=== PATIENT | male | born 1940 | race Caucasian/White ===

== ENCOUNTER 2025-04-17 08:45 | Inpatient (IN) ==
--- NOTE | 2025-04-17 09:04 | Emergency Department Note ---
Impression & Plan CHI (closed head injury), Abrasion of scalp, Accidental fall from wheelchair, Dementia, Mass of right lung, Infrarenal abdominal aortic aneurysm (AAA) without rupture, Pleural effusion ED Provider Note ED Provider Note NAME: KAREL BREWSTER AGE:84 SEX: Male : 1940 ARRIVES VIA: EMS INFORMANT: Patient, EMS ED PROVIDER(s): Jenny Marcos DO CHIEF COMPLAINT: Fall out of wheelchair, head injury HPI: This is an 84-year-old male presents to the emergency department via EMS after a fall out of a wheelchair at the facility where he resides. Patient does have a history of dementia and has difficult time providing any additional history. Staff there noted he was bleeding from a spot on his head quite briskly however EMS reports bleeding was controlled by the time of arrival. Patient does use Eliquis. Patient admits to pain in his head, denies chest pain, abdominal pain, or difficulty breathing. Staff reported to EMS the patient had poor sleep last night which is unusual for him and fell asleep while seated in his wheelchair this morning. They heard a thud and turned around and realized he had fell out of his wheelchair. PAST MEDICAL HISTORY:See Below PAST SURGICAL HISTORY:See Below FAMILY HISTORY:See Below SOCIAL HISTORY:See Below HOME MEDICATIONS:See Below ALLERGIES:See Below VITALS:See Below PHYSICAL EXAMINATION: Primary Survey Airway: Intact Breathing: Normal, breath sounds equal bilaterally Circulation: Skin warm, distal pulses 2+, capillary refill less than 2 seconds Disability Pupils: Equal and reactive to light, 2 mm, brisk GCS: 15, Motor Function: Moves all extremities. Sensory: No deficits Secondary Survey GENERAL: alert, well appearing, well nourished, no distress, non-toxic HEAD: normal cephalic, abrasion noted to the superior forehead/frontal scalp, no active bleeding, no facial bone tenderness, no midface instability, no thomas signs, no raccoon eyes EYE EXAM: normal conjunctiva, PERRL and EOM's grossly intact OROPHARYNX: no exudate, no erythema, lips, buccal mucosa, and tongue normal and mucous membranes are moist NECK: supple, no nuchal rigidity, no adenopathy, non-tender, c-collar present CHEST: stable to compression anteriorly and posteriorly, no crepitus LUNGS: clear to auscultation. Normal chest wall mechanics, no w/r/r HEART: no murmurs, S1 normal and S2 normal ABDOMEN: abdomen soft, non-tender, normo-active bowel sounds, no masses, no rebound or guarding. PELVIS: stable to compression BACK: Back is symmetrical on inspection and there is no deformity, pain with palpation of the lumbar spine, no CVA tenderness. UPPER EXTREMITIES: full active and passive range of motion of all joints without tenderness to palpation, no obvious deformities, sensation intact bilaterally, normal pulses bilaterally; evidence of resolving ecchymosis noted to bilateral dorsal forearms. LOWER EXTREMITIES: full active and passive range of motion of all joints without tenderness to palpation, no obvious deformities, sensation intact bilaterally, normal pulses bilaterally; no brace noted in the distal right lower extremity, decreased range of motion secondary to this. NEURO EXAM: Confused, cranial nerves II-XII grossly intact, no dysarthria, no gross weakness of arms, no gross weakness of legs. GCS: 15. Vital Signs: reviewed and remarkable Differential Diagnosis: ICH, CHI, fracture, contusion, sprain, strain, laceration, abrasions, hemoperitoneum, occult spine injury, acute ligamentous injury, retroperitoneal bleeding, as well as others were considered MEDICAL DECISION MAKING: This is an 84-year-old presents from a facility after he excellently fell out of his wheelchair when he fell asleep. Patient afebrile hemodynamically stable on arrival. Staff concern as patient does use Eliquis. Labs drawn and sent, IV established, EKG and xrays performed and interpreted at bedside, and patient placed on telemetry. Patient sent for additional CT imaging. Initially CT of the head, C-spine, lumbar spine were ordered, however upon noting atypical findings on x-ray of the chest and consideration for his accompanying use of anticoagulation, additional CT imaging was added. Patient noted to have appearance of malignancy in the right lung, a AAA, however no evidence of acute traumatic injury. Patient remained hemodynamically stable throughout. Patient's son presented to bedside as well and I had several conversations with him regarding the results and findings as well as options for treatment. Per his request I did contact on-call pulmonology who also came and discussed the patient's condition with the son at bedside. We then discussed a palliative approach to his care moving forward. The son feels given the current [facility] he is and he would need to be upgraded to a nursing home facility. We discussed additional inpatient treatment until this could be arranged which would also allow for a palliative care consult. Case discussed with the hospitalist team for additional evaluation and management. Consultation(s): 1302: Discussed with Dr. Lora who came and evaluated the patient and spoke with son at bedside. 1323: Discussed with Veronica, admitting hospitalist team, for additional evaluation and management. ER Treatment Provided: See below 1145: Discussed all results with son at bedside. He was aware of the malignancy and stated they had a consultation with a doctor in [place] before he moved the patient here regarding some of the right lung. He states the abdominal aortic aneurysm was also previously known. He was able to pull up a prior CT from earlier this summer for comparison. Diagnostics Interpreted By Me: -ECG: Sinus bradycardia 58, normal axis, normal intervals, nonspecific ST/T wave changes, baseline artifact noted -Cardiac Monitoring: An order was placed for continuous cardiac monitoring. The monitor shows a rate of 60 with normal sinus rhythm. -Laboratory studies: As stated above and show below. -Imaging studies: X-ray Chest: A single view study of the chest was reviewed and was negative for cardiomegaly, focal infiltrate, effusion, pulmonary edema, or wide mediastinum. Questionable mass in the right lung. Triage Nursing Note Reviewed Prior/Outside Records Reviewed Past Med/Surg History Problem List (Updated 04/17/25 @ 15:55 by Jenny Marcos DO) Pleural effusion (Acute) Infrarenal abdominal aortic aneurysm (AAA) without rupture (Acute) Mass of right lung (Acute) Dementia (Acute) Accidental fall from wheelchair (Acute) Abrasion of scalp (Acute) CHI (closed head injury) (Acute) CAD (coronary artery disease) Urinary retention Enlarged prostate with lower urinary tract symptoms (LUTS) Medical History (Updated 04/17/25 @ 15:55 by Jenny Marcos DO) CVA (cerebral vascular accident) Social History Smoking Status: Unknown if ever smoked Feels Safe at Home: Yes Allergies Allergies Allergy/AdvReac Type Severity Reaction Status Date / Time codeine Allergy Verified 01/25/25 14:14 Home Meds Home Medications Medication Instructions Recorded Confirmed apixaban 5 mg tablet 5 mg PO BID 01/25/25 04/17/25 atorvastatin 10 mg tablet 10 mg PO HS 01/25/25 04/17/25 bisacodyl 10 mg rectal suppository 10 mg WA DAILY PRN Constipation 01/25/25 04/17/25 carvedilol 6.25 mg tablet 6.25 mg PO BID 01/25/25 04/17/25 dapagliflozin propanediol 10 mg 10 mg PO DAILY 01/25/25 04/17/25 tablet docusate sodium 100 mg capsule 100 mg PO BID 01/25/25 04/17/25 (Colace) famotidine 20 mg tablet (Pepcid) 20 mg PO BID 01/25/25 04/17/25 mirabegron 50 mg tablet,extended 50 mg PO DAILY 01/25/25 04/17/25 release 24 hr polyethylene glycol 3350 17 17 g PO DAILY 01/25/25 04/17/25 gram/dose oral powder (Miralax) cetirizine 10 mg tablet 10 mg PO DAILY 04/17/25 04/17/25 diclofenac sodium 1 % topical gel 4 g topical QID 04/17/25 04/17/25 hydrocortisone acetate 25 mg 25 mg WA BID PRN hemmoroids 04/17/25 04/17/25 rectal suppository ipratropium 0.5 mg-albuterol 3 mg 3 ml inhalation BID 04/17/25 04/17/25 (2.5 mg base)/3 mL nebulization soln lactulose 10 gram/15 mL oral 30 ml PO AMHS PRN Constipation 04/17/25 04/17/25 solution lorazepam 0.5 mg tablet 0.5 mg PO Q6H PRN Anxiety 04/17/25 04/17/25 melatonin 3 mg tablet 6 mg PO HS PRN Sleep 04/17/25 04/17/25 naproxen sodium 220 mg tablet 220 mg PO BID PRN Pain 04/17/25 04/17/25 pantoprazole 40 mg tablet,delayed 40 mg PO DAILY 04/17/25 04/17/25 release polymyxin B sulfate 10,000 1 drp ophthalmic (eye) QID 04/17/25 04/17/25 unit-trimethoprim 1 mg/mL eye drops tizanidine 4 mg tablet 4 mg PO Q8H PRN Muscle Spasm 04/17/25 04/17/25 Previous Rx's Medication Instructions Recorded tamsulosin 0.4 mg capsule (Flomax) 0.4 mg PO .every 12 hours #30 caps 01/28/25 Results & Data (ED) Vital Signs Vital Signs - 24 hr 04/17/25 08:45 04/17/25 09:30 04/17/25 09:33 Temperature 36.5 C Temperature Source Oral Pulse Rate 60 57 L 57 L Pulse Rate [Apical] Pulse Rate from SpO2 Sensor 57 L 57 L Respiratory Rate 19 19 19 Respiratory Effort / Characteristics Non-Labored Spontaneous Respiratory Depth Normal Respiratory Pattern Regular Blood Pressure 128/55 L 114/55 L 113/53 L Blood Pressure [Right Arm] Blood Pressure Mean 79 74 73 Blood Pressure Mean [Right Arm] Pulse Oximetry 99 94 94 Oxygen Delivery Method Room Air Sepsis Recent Fever Within 48 Hours No Sepsis New/Unexplained Change in Mental Status No Sepsis Action Taken by Nursing No Action Required 04/17/25 10:00 04/17/25 10:00 04/17/25 10:30 Temperature Temperature Source Pulse Rate 57 L 57 L Pulse Rate [Apical] 57 L Pulse Rate from SpO2 Sensor 57 L 58 L Respiratory Rate 18 18 19 Respiratory Effort / Characteristics Non-Labored Respiratory Depth Normal Respiratory Pattern Regular Blood Pressure 117/52 L 109/50 L Blood Pressure [Right Arm] 117/52 L Blood Pressure Mean 73 69 Blood Pressure Mean [Right Arm] 73 Pulse Oximetry 96 96 98 Oxygen Delivery Method Room Air Sepsis Recent Fever Within 48 Hours Sepsis New/Unexplained Change in Mental Status Sepsis Action Taken by Nursing 04/17/25 11:00 04/17/25 11:00 04/17/25 11:30 Temperature Temperature Source Pulse Rate 74 76 Pulse Rate [Apical] 76 Pulse Rate from SpO2 Sensor 74 76 Respiratory Rate 18 25 H 18 Respiratory Effort / Characteristics Non-Labored Respiratory Depth Normal Respiratory Pattern Regular Blood Pressure 93/52 L 104/49 L Blood Pressure [Right Arm] 93/52 L Blood Pressure Mean 65 67 Blood Pressure Mean [Right Arm] 65 Pulse Oximetry 97 96 91 Oxygen Delivery Method Room Air Sepsis Recent Fever Within 48 Hours Sepsis New/Unexplained Change in Mental Status Sepsis Action Taken by Nursing 04/17/25 12:00 04/17/25 12:00 04/17/25 12:50 Temperature Temperature Source Pulse Rate 77 77 Pulse Rate [Apical] 83 Pulse Rate from SpO2 Sensor 77 Respiratory Rate 18 20 Respiratory Effort / Characteristics Non-Labored Respiratory Depth Normal Respiratory Pattern Regular Blood Pressure 111/48 L Blood Pressure [Right Arm] 111/48 L Blood Pressure Mean 69 Blood Pressure Mean [Right Arm] 69 Pulse Oximetry 95 93 Oxygen Delivery Method Room Air Sepsis Recent Fever Within 48 Hours Sepsis New/Unexplained Change in Mental Status Sepsis Action Taken by Nursing 04/17/25 13:35 04/17/25 14:00 04/17/25 15:04 Temperature Temperature Source Pulse Rate Pulse Rate [Apical] 85 81 81 Pulse Rate from SpO2 Sensor Respiratory Rate 25 H 21 23 Respiratory Effort / Characteristics Non-Labored Spontaneous Non-Labored Spontaneous Non-Labored Spontaneous Respiratory Depth Normal Normal Normal Respiratory Pattern Regular Blood Pressure Blood Pressure [Right Arm] 131/57 L 122/67 123/65 Blood Pressure Mean Blood Pressure Mean [Right Arm] 81 85 84 Pulse Oximetry 96 99 96 Oxygen Delivery Method Room Air Room Air Room Air Sepsis Recent Fever Within 48 Hours Sepsis New/Unexplained Change in Mental Status Sepsis Action Taken by Nursing Laboratory Data 04/17/25 09:00 04/17/25 09:00 Lab Results 04/17/25 04/17/25 04/17/25 Range/Units 09:00 14:57 Unknown WBC 9.15 (4.8-10.8) K/ul RBC 3.70 L (4.70-6.10) M/uL Hgb 10.0 L (14.0-18.0) g/dL Hct 31.5 L (42.0-52.0) % MCV 85.1 (80.0-100.0) fL MCH 27.0 (25.0-34.0) pg MCHC 31.7 L (32.0-36.0) g/dL RDW Std Deviation 46.4 H (36.4-46.3) fL RDW Coeff of Joellen 15.0 H (11.5-14.5) % Plt Count 299 (130-400) K/uL MPV 10.0 (9.4-12.4) fL Immature Gran % (Auto) 0.1 % Neut % (Auto) 72.3 % Lymph % (Auto) 8.1 % Crane % (Auto) 14.8 % Eos % (Auto) 4.4 % Baso % (Auto) 0.3 % Neut # (Auto) 6.62 H (1.40-6.50) K/uL Lymph # (Auto) 0.74 L (1.20-3.40) K/uL Crane # (Auto) 1.35 H (0.11-0.59) K/uL Eos # (Auto) 0.40 (0.00-0.50) K/uL Baso # (Auto) 0.03 (0.00-0.20) K/uL Immature Gran # (Auto) 0.01 (0.01-0.20) K/uL ESR > 130 H (0-20) mm/hr Sodium 138 (136-145) mmol/L Potassium 4.1 (3.5-5.1) mmol/L Chloride 104 (98-107) mmol/L Carbon Dioxide 27 (21-32) mmol/L Anion Gap 7 (3-11) BUN 28 H (6-23) mg/dl Creatinine 1.15 (0.6-1.4) mg/dl Est Cr Clr Drug Dosing 35.9 ml/min eGFR 61.98 BUN/Creatinine Ratio 24.3 H (10-20) Glucose 121 H (70-99(Fasting)) mg/dl Calcium 9.6 (8.6-10.3) mg/dl Magnesium 2.3 (1.7-2.4) mg/dl Total Bilirubin 0.4 (0.2-1.0) mg/dl AST 22 (13-39) U/L ALT 11 (7-52) U/L Alkaline Phosphatase 77 (34-104) U/L Troponin I High Sens 10.4 (0-20) pg/ml C-Reactive Protein 10.84 H (0-0.5) mg/dl Total Protein 9.1 H (6.0-8.3) gm/dl Albumin 3.1 L (3.4-5.0) gm/dl Globulin 6.0 H (2.5-4.0) gm/dl Albumin/Globulin Ratio 0.5 L (0.9-2) Procalcitonin 0.08 (0-0.5) ng/ml TSH 1.763 (0.300-4.500) uIu/ml Adenovirus (PCR) Not Detected (NotDetected) B. pertussis DNA (PCR) Not Detected (NotDetected) B.parapertussis DNA PCR Not Detected (NotDetected) C. pneumoniae DNA (PCR) Not Detected (NotDetected) Coronavirus OC43 (PCR) Not Detected (NotDetected) Coronavirus HKU1 (PCR) Not Detected (NotDetected) Coronavirus 229E (PCR) Not Detected (NotDetected) SARS-CoV-2 (PCR) Not Detected (NotDetected) Coronavirus NL63 (PCR) Not Detected (NotDetected) Human Metapneumovir PCR Not Detected (NotDetected) Influenza Type A (PCR) Not Detected (NotDetected) Influenza Type B (PCR) Not Detected (NotDetected) M. pneumoniae (PCR) Not Detected (NotDetected) Parainfluenza 1 (PCR) Not Detected (NotDetected) Parainfluenza 2 (PCR) Not Detected (NotDetected) Parainfluenza 3 (PCR) Not Detected (NotDetected) Parainfluenza 4 (PCR) Not Detected (NotDetected) RSV (PCR) Not Detected (NotDetected) Entero/Rhino (PCR) Not Detected (NotDetected) Administered Medications Discontinued Medications Sodium Chloride (Nss) 500 mls @ 125 mls/hr IV .Q4H JOHN Stop: 04/17/25 12:59 Last Infusion: 04/17/25 12:36 Dose: Infused Documented By: Admin: 04/17/25 09:35 Dose: 125 mls/hr Documented By: JAYNE Ioversol (Optiray 320 100ml) 94 ml IV ONCE ONE Stop: 04/17/25 10:39 Last Admin: 04/17/25 10:38 Dose: 94 ml Documented By: CARLOTTA Imaging Data Radiologist's Impression: Cervical Spine CT 04/17/25 08:53 CT cervical spine wo con CT DOSE: 1769.98 mGy.cm CLINICAL HISTORY: 84 years-old Male with trauma. Acute head and neck injury status post fall COMPARISON: Head CT of same day TECHNIQUE: Multiple axial CT images of the cervical spine were obtained without contrast. A dose lowering technique was utilized adhering to the principles of ALARA. FINDINGS: Mild multilevel intervertebral disc space narrowing. Moderate to severe degeneration at C1-C2. Moderate multilevel facet arthrosis. Nuchal ligament calcifications. Sclerotic focus at C7, likely a small bone island. The cervical soft tissues appear unremarkable. Emphysema with pulmonary fibrotic changes. Partially imaged right upper lobe consolidation. Chest CT dictated separately. Unremarkable soft tissues. IMPRESSION: 1. No acute cervical spine fracture or subluxation identified. 2. Emphysema with fibrosis and partially imaged right upper lobe consolidation. Please refer to the same day chest CT for additional findings. ACT 112: Negative or not required by law. The above report was generated using voice recognition software. It may contain grammatical, syntax or spelling errors. Electronically signed by: Shawn Torres M.D. 04/17/2025 11:29 AM Chest X-Ray 04/17/25 08:53 XR chest 1V portable CLINICAL HISTORY: Trauma. COMPARISON STUDY: No previous studies for comparison. FINDINGS: No pneumothorax or pleural effusion is identified. Mild asymmetric right lung volume loss is noted. There are asymmetric opacities and interstitial thickening within the right lung. Biapical densities are also greater on the right. There is no evidence for pulmonary edema. Cardiomediastinal silhouette is unremarkable. Electronic device projects of the left lower chest. No acute rib fractures are identified on portable AP chest radiograph. IMPRESSION: 1. No pneumothorax. 2. Asymmetric interstitial thickening, opacities and volume loss within the right lung. These findings are age-indeterminate and may be chronic however pneumonia cannot be excluded. Radiographic follow-up to ensure stability/resolution is recommended to exclude the possibility of an underlying pulmonary lesion. ACT 112: Negative or not required by law. Electronically signed by: Dave Gutierrez M.D. 04/17/2025 9:[address] 04/17/25 08:53 CT head/brain wo con CLINICAL HISTORY: 84 years-old Male with trauma. Acute head trauma, TECHNIQUE: Multiple axial CT images of the head were obtained without contrast. A dose lowering technique was utilized adhering to the principles of ALARA. COMPARISON: CT cervical spine same day FINDINGS: Motion degraded exam. Involutional changes with chronic microvascular ischemic disease. Areas of bilateral parieto-occipital encephalomalacia are noted. Cerebral vascular calcifications. Chronic lacunar infarcts of the cerebellum. No acute intracranial hemorrhage, midline shift, intracranial mass, hydrocephalus, territorial ischemia or abnormal extra-axial collection. The calvarium is intact. The paranasal sinuses, mastoid air cells, and middle ear cavities are clear. IMPRESSION: 1. Motion degraded exam without acute intracranial abnormality or calvarial fracture identified. 2. Involutional changes with chronic microvascular ischemic disease. 3. 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 ACT 112: Negative or not required by law. The above report was generated using voice recognition software. It may contain grammatical, syntax or spelling errors. Electronically signed by: Shawn Torres M.D. 04/17/2025 11:25 AM Pelvis X-Ray 04/17/25 08:53 XR pelvis 1-2V routine HISTORY: 84 years-old Male trauma acute pelvic trauma COMPARISON: CT abdomen and pelvis of same day TECHNIQUE: AP view of the pelvis FINDINGS: Mild osteoarthritis of the hips. There is cortical irregularity noted involving the mid right femoral neck. No acute displaced fracture or dislocation. Arterial calcifications are present. Surgical clips project over the midline pelvis. IMPRESSION: 1. No definite acute fracture or dislocation. 2. Cortical irregularity of the right femoral neck is likely projectional when comparing to the same day CT abdomen and pelvis. No definite acute fracture identified. ACT 112: Negative or not required by law. The above report was generated using voice recognition software. It may contain grammatical, syntax or spelling errors. Electronically signed by: Shawn Torres M.D. 04/17/2025 11:12 AM Abdomen/Pelvis CT 04/17/25 08:58 CT SCAN OF THE ABDOMEN AND PELVIS WITH IV CONTRAST CLINICAL HISTORY: Fall. COMPARISON STUDY: Pelvis radiograph performed earlier today. TECHNIQUE: Following the IV administration of 94 cc of Optiray 320, CT scan of the abdomen and pelvis is performed from the lung bases to the proximal femora. Images are reviewed in the axial, sagittal, and coronal planes. IV contrast was administered without complication. A dose lowering technique was utilized adhering to the principles of ALARA. FINDINGS: Please note that the chest CT will be reported separately. A small right basilar pneumothorax is better depicted on that exam. No hemoperitoneum or pneumoperitoneum is present. Note is made of a 6.6 x 5.4 cm infrarenal abdominal aortic aneurysm. There is no evidence for rupture. There is extensive aortoiliac atherosclerotic plaque. A 3 cm water attenuation right renal lesion represents a cyst. There is no evidence for traumatic injury to the liver, spleen, adrenal glands, kidneys or pancreas. There are calcified granulomas within the spleen. A moderate amount of stool within the colon and rectum is present. No bowel wall thickening is present. There is no evidence for a bowel obstruction. A moderate T12 compression fracture is likely chronic. 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 The possible right femoral neck fracture on radiograph was artifactual. There are no acute fractures within the lumbar spine, pelvis or hips. IMPRESSION: 1. No acute traumatic findings within the abdomen or pelvis. 2. No acute fractures within the lumbar spine, pelvis or hips. Old T12 compression fracture. 3. 6.6 x 5.4 cm infrarenal aortic aneurysm. No evidence for rupture. Nonemergent Vascular surgery consultation is recommended. ACT 112: Negative or not required by law. Electronically signed by: Dave Gutierrez M.D. 04/17/2025 11:[address] 04/17/25 08:[address] WITH CONTRAST CLINICAL HISTORY: trauma COMPARISON STUDY: No previous studies for comparison. TECHNIQUE: Axial images of the lumbar spine were obtained following intravenous injection of 94 cc of Optiray 320 IV. Sagittal and coronal reformats were viewed. A dose lowering technique was utilized adhering to the principles of ALARA. FINDINGS: For purposes of numbering on this exam, the L5-S1 disc space is assigned to axial image 358 of [id number]. There is moderate lumbar spine dextroscoliosis. Moderate loss of height of the superior endplate of T12 is likely chronic. There is also mild loss of height of the superior endplate of L1 which is also chronic. No acute lumbar spine fractures are present. There are no suspicious osseous lesions. There is severe multilevel facet arthrosis and moderate disc space narrowing and endplate osteophytosis within the lumbar spine. Evaluation of the central canal and neural foramen is suboptimal given CT technique. Please note that the abdomen and pelvis CT will be reported separately. A 6.6 cm infrarenal abdominal aortic aneurysm is better depicted on that exam. There is a right renal cyst. No acute paravertebral abnormality is identified. IMPRESSION: 1. No acute lumbar spine fracture or subluxation. 2. Old moderate T12 compression fracture, likely chronic. Mild loss of height of the superior endplate of L1 which is also chronic. 3. 6.6 cm infrarenal abdominal aortic aneurysm better depicted on the abdomen and pelvis CT. No evidence for rupture. 4. Moderate degenerative disc disease and severe facet arthrosis within the lumbar spine. Moderate dextroscoliosis. ACT 112: Negative or not required by law. Electronically signed by: Dave Gutierrez M.D. 04/17/2025 11:[address] 04/17/25 09:28 CT SCAN OF THE CHEST WITH IV CONTRAST CLINICAL HISTORY: Fall. COMPARISON STUDY: Chest radiograph performed earlier today. TECHNIQUE: Following the IV administration of 94 cc of Optiray 320, CT scan of the thorax was performed from the thoracic inlet to the upper abdomen. Images are reviewed in the axial, sagittal, and coronal planes. IV contrast was administered without complication. A dose lowering technique was utilized adhering to the principles of ALARA. CT DOSE: 1215.3 mGy.cm FINDINGS: There is no evidence for traumatic injury to the thoracic aorta. Extensive coronary artery calcification is present. The size of the heart is at the upper limits of normal. There are calcified subcarinal and hilar lymph nodes. No pathologically enlarged thoracic lymph nodes are present. There are several prominent subcarinal lymph nodes. Of note, there is a small right basilar pneumothorax. A small amount of associated pleural fluid is present. There is also trace pneumomediastinum. Of note, there are multiple irregular subpleural mass-like opacities within the right lung, the largest of which is within the superior segment of the right lower lobe on image 105. This measures 5.1 cm. There is an additional 4.3 cm subpleural opacity within the medial right lower lobe on image 119. An underlying bronchopleural fistula cannot be excluded. Additional smaller subpleural densities are present. There is a 1.6 cm right lower lobe nodular density. Of note, there is multifocal subpleural reticulation consistent with interstitial lung disease and suspected honeycombing. Right apical pleural thickening is present. There is underlying emphysema. A moderate T12 compression fracture is likely old. No acute rib or thoracic spine fractures identified. IMPRESSION: 1. Small right pneumothorax. No acute rib fractures identified. Trace pneumomediastinum. An underlying bronchopleural fistula as the etiology for the pneumothorax cannot be excluded. 2. Multiple subpleural mass-like opacities within the right lung which correspond to findings on chest radiograph. These are nonspecific and may represent necrotizing pneumonia. However, a neoplastic etiology is also within the differential. Pulmonary consultation is recommended. In addition, short-term follow-up chest CT in one month is suggested. 3. Evidence for interstitial lung disease and emphysema, as described above. 4. Scattered nodular opacities within the lungs, including a 1.6 and a right lower lobe opacity. These can be assessed on the follow-up chest CT. 5. Moderate T12 compression fracture, likely chronic. No acute fractures identified. ACT 112: Positive. There are findings on this exam that require communication between the performing entity and the patient following Patient Test Result Information Act ([place] Act 112) guidelines. Electronically signed by: Dave Gutierrez M.D. 04/17/2025 11:14 AM Discharge Plan Visit Data Chief Complaint: Fall Stated Complaint: fell out of wheelchair ED Provider: Jenny Marcos Discharge Problem: CHI (closed head injury), Abrasion of scalp, Accidental fall from wheelchair, Dementia, Mass of right lung, Infrarenal abdominal aortic aneurysm (AAA) without rupture, Pleural effusion Patient Disposition: Being Evaluated by Hospitalist Condition: Fair Forms Stand Alone Forms: My [facility] Prescriptions Prescriptions: No Action apixaban 5 mg tablet 5 mg PO BID atorvastatin 10 mg tablet 10 mg PO HS bisacodyl 10 mg suppository 10 mg WA DAILY PRN (Reason: Constipation) carvedilol 6.25 mg tablet 6.25 mg PO BID Rx Instructions: must administer with a meal/food dapagliflozin propanediol 10 mg tablet 10 mg PO DAILY docusate sodium [Colace] 100 mg capsule 100 mg PO BID famotidine [Pepcid] 20 mg tablet 20 mg PO BID mirabegron 50 mg tablet extended release 24 hr 50 mg PO DAILY polyethylene glycol 3350 [Miralax] 17 gram/dose powder 17 g PO DAILY tamsulosin [Flomax] 0.4 mg capsule 0.4 mg PO .every 12 hours Qty: 30 2RF ipratropium-albuterol [DuoNeb] 0.5 mg-3 mg(2.5 mg base)/3 mL Solution For Nebulization 3 ml INHALATION BID Rx Instructions: after meals cetirizine 10 mg Tablet 10 mg PO DAILY tizanidine 4 mg tablet 4 mg PO Q8H PRN (Reason: Muscle Spasm) melatonin 3 mg Tablet 6 mg PO HS PRN (Reason: Sleep) hydrocortisone acetate 25 mg Suppository 25 mg WA BID PRN (Reason: hemmoroids) lorazepam 0.5 mg tablet 0.5 mg PO Q6H PRN (Reason: Anxiety) pantoprazole 40 mg Tablet,Delayed Release (Dr/Ec) 40 mg PO DAILY naproxen sodium 220 mg Tablet 220 mg PO BID PRN (Reason: Pain) polymyxin B sulf-trimethoprim 10,000 unit- 1 mg/mL drops 1 drp ophthalmic (eye) QID Rx Instructions: into left eye at 0800, 1200, 1600, 2000 lactulose 10 gram/15 mL Solution 30 ml PO AMHS PRN (Reason: Constipation) diclofenac sodium 1 % Gel 4 g TOPICAL QID Rx Instructions: apply to single knee, ankle, foot; for foot includes sole/toes/top of foot Referrals Referrals: Compa Ricketts MD [Primary Care Provider] -
[2025-04-17 09:15] LABS: Hematocrit (blood only) 31.5 % (42.0-52.0); Hemoglobin 10.0 g/dL (14.0-18.0); Immature Granulocytes # (auto) 0.01 K/uL (0.01-0.20); Immature Granulocytes % (auto) 0.1 %; Mean Corpuscular Hemoglobin 27.0 pg (25.0-34.0); Mean Corpuscular Volume 85.1 fL (80.0-100.0); Platelet Count 299 K/uL (130-400); RDW Standard Deviation 46.4 fL (36.4-46.3); Red Blood Count 3.70 M/uL (4.70-6.10); White Blood Count 9.15 K/ul (4.8-10.8)
--- NOTE | 2025-04-17 09:20 | XRay Report ---
XR chest 1V portable CLINICAL HISTORY: Trauma. COMPARISON STUDY: No previous studies for comparison. FINDINGS: No pneumothorax or pleural effusion is identified. Mild asymmetric right lung volume loss i s noted. There are asymmetric opacities and interstitial thickening within the right lung. Biapical d ensities are also greater on the right. There is no evidence for pulmonary edema. Cardiomediastinal s ilhouette is unremarkable. Electronic device projects of the left lower chest. No acute rib fractures are identified on portable AP chest radiograph. IMPRESSION: 1. No pneumothorax. 2. Asymmetric interstitial thickening, opacities and volume loss within the right lung. These finding s are age-indeterminate and may be chronic however pneumonia cannot be excluded. Radiographic follow- up to ensure stability/resolution is recommended to exclude the possibility of an underlying pulmonar y lesion. ACT 112: Negative or not required by law. Electronically signed by: Dave Gutierrez M.D. 04/17/2025 9:18 AM
[2025-04-17 09:32] LABS: Alanine Aminotransferase 11.0 U/L (7-52); Albumin Globulin Ratio 0.5 (0.9-2); Albumin Level 3.1 gm/dl (3.4-5.0); Alkaline Phosphatase 77.0 U/L (34-104); Anion Gap 7.0 (3-11); Bilirubin,Total 0.4 mg/dl (0.2-1.0); Blood Urea Nitrogen 28.0 mg/dl (6-23); Calcium 9.6 mg/dl (8.6-10.3); Carbon Dioxide 27.0 mmol/L (21-32); Chloride 104.0 mmol/L (98-107); Creatinine Clr Calc Pharmacy 35.9 ml/min; Globulin 6.0 gm/dl (2.5-4.0); Glucose 121.0 mg/dl (70-99(Fasting)); Magnesium 2.3 mg/dl (1.7-2.4); Potassium 4.1 mmol/L (3.5-5.1); Sodium 138.0 mmol/L (136-145); Total Protein 9.1 gm/dl (6.0-8.3)
[2025-04-17] MEDS: SODIUM CHLORIDE 0.9% 500 ML IV SCH (09:35)
[2025-04-17 09:47] LABS: Thyroid Stimulating Hormone 1.763 uIu/ml (0.300-4.500)
[2025-04-17] MEDS: OPTIRAY 320 100ml IV ONE (10:38)
--- NOTE | 2025-04-17 11:13 | XRay Report ---
XR pelvis 1-2V routine HISTORY: 84 years-old Male trauma acute pelvic trauma COMPARISON: CT abdomen and pelvis of same day TECHNIQUE: AP view of the pelvis FINDINGS: Mild osteoarthritis of the hips. There is cortical irregularity noted involving the mid right femoral neck. No acute displaced fracture or dislocation. Arterial calcifications are present. Surgical clip s project over the midline pelvis. IMPRESSION: 1. No definite acute fracture or dislocation. 2. Cortical irregularity of the right femoral neck is likely projectional when comparing to the same day CT abdomen and pelvis. No definite acute fracture identified. ACT 112: Negative or not required by law. The above report was generated using voice recognition software. It may contain grammatical, syntax o r spelling errors. Electronically signed by: Shawn Torres M.D. 04/17/2025 11:12 AM
--- NOTE | 2025-04-17 11:16 | CT Scan Report ---
CT SCAN OF THE CHEST WITH IV CONTRAST CLINICAL HISTORY: Fall. COMPARISON STUDY: Chest radiograph performed earlier today. TECHNIQUE: Following the IV administration of 94 cc of Optiray 320, CT scan of the thorax was perform ed from the thoracic inlet to the upper abdomen. Images are reviewed in the axial, sagittal, and mary nal planes. IV contrast was administered without complication. A dose lowering technique was utilize d adhering to the principles of ALARA. CT DOSE: 1215.3 mGy.cm FINDINGS: There is no evidence for traumatic injury to the thoracic aorta. Extensive coronary artery calcification is present. The size of the heart is at the upper limits of normal. There are calcified subcarinal and hilar lymph nodes. No pathologically enlarged thoracic lymph nodes are present. There are several prominent subcarinal lymph nodes. Of note, there is a small right basilar pneumothorax. A small amount of associated pleural fluid is present. There is also trace pneumomediastinum. Of note , there are multiple irregular subpleural mass-like opacities within the right lung, the largest of w hich is within the superior segment of the right lower lobe on image 105. This measures 5.1 cm. There is an additional 4.3 cm subpleural opacity within the medial right lower lobe on image 119. An under lying bronchopleural fistula cannot be excluded. Additional smaller subpleural densities are present. There is a 1.6 cm right lower lobe nodular density. Of note, there is multifocal subpleural reticula tion consistent with interstitial lung disease and suspected honeycombing. Right apical pleural thick ening is present. There is underlying emphysema. A moderate T12 compression fracture is likely old. N o acute rib or thoracic spine fractures identified. IMPRESSION: 1. Small right pneumothorax. No acute rib fractures identified. Trace pneumomediastinum. An underlyin g bronchopleural fistula as the etiology for the pneumothorax cannot be excluded. 2. Multiple subpleural mass-like opacities within the right lung which correspond to findings on ches t radiograph. These are nonspecific and may represent necrotizing pneumonia. However, a neoplastic et iology is also within the differential. Pulmonary consultation is recommended. In addition, short-ter m follow-up chest CT in one month is suggested. 3. Evidence for interstitial lung disease and emphysema, as described above. 4. Scattered nodular opacities within the lungs, including a 1.6 and a right lower lobe opacity. Thes e can be assessed on the follow-up chest CT. 5. Moderate T12 compression fracture, likely chronic. No acute fractures identified. ACT 112: Positive. There are findings on this exam that require communication between the performing entity and the patient following Patient Test Result Information Act ([place] Act 112) guidelines. Electronically signed by: Dave Gutierrez M.D. 04/17/2025 11:14 AM
--- NOTE | 2025-04-17 11:22 | CT Scan Report ---
CT SCAN OF THE ABDOMEN AND PELVIS WITH IV CONTRAST CLINICAL HISTORY: Fall. COMPARISON STUDY: Pelvis radiograph performed earlier today. TECHNIQUE: Following the IV administration of 94 cc of Optiray 320, CT scan of the abdomen and pelvi s is performed from the lung bases to the proximal femora. Images are reviewed in the axial, sagittal , and coronal planes. IV contrast was administered without complication. A dose lowering technique wa s utilized adhering to the principles of ALARA. FINDINGS: Please note that the chest CT will be reported separately. A small right basilar pneumothor ax is better depicted on that exam. No hemoperitoneum or pneumoperitoneum is present. Note is made of a 6.6 x 5.4 cm infrarenal abdominal aortic aneurysm. There is no evidence for rupture. There is exte nsive aortoiliac atherosclerotic plaque. A 3 cm water attenuation right renal lesion represents a cys t. There is no evidence for traumatic injury to the liver, spleen, adrenal glands, kidneys or pancrea s. There are calcified granulomas within the spleen. A moderate amount of stool within the colon and rectum is present. No bowel wall thickening is present. There is no evidence for a bowel obstruction. A moderate T12 compression fracture is likely chronic. 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 The possible right femoral neck fracture on radiograph was artifactual. There are no acute f ractures within the lumbar spine, pelvis or hips. IMPRESSION: 1. No acute traumatic findings within the abdomen or pelvis. 2. No acute fractures within the lumbar spine, pelvis or hips. Old T12 compression fracture. 3. 6.6 x 5.4 cm infrarenal aortic aneurysm. No evidence for rupture. Nonemergent Vascular surgery con sultation is recommended. ACT 112: Negative or not required by law. Electronically signed by: Dave Gutierrez M.D. 04/17/2025 11:21 AM
--- NOTE | 2025-04-17 11:26 | CT Scan Report ---
LUMBAR SPINE CT WITH CONTRAST CLINICAL HISTORY: trauma COMPARISON STUDY: No previous studies for comparison. TECHNIQUE: Axial images of the lumbar spine were obtained following intravenous injection of 94 cc of Optiray 320 IV. Sagittal and coronal reformats were viewed. A dose lowering technique was utilized a dhering to the principles of ALARA. FINDINGS: For purposes of numbering on this exam, the L5-S1 disc space is assigned to axial image 358 of 426. There is moderate lumbar spine dextroscoliosis. Moderate loss of height of the superior endp late of T12 is likely chronic. There is also mild loss of height of the superior endplate of L1 which is also chronic. No acute lumbar spine fractures are present. There are no suspicious osseous lesion s. There is severe multilevel facet arthrosis and moderate disc space narrowing and endplate osteophy tosis within the lumbar spine. Evaluation of the central canal and neural foramen is suboptimal given CT technique. Please note that the abdomen and pelvis CT will be reported separately. A 6.6 cm infra renal abdominal aortic aneurysm is better depicted on that exam. There is a right renal cyst. No acut e paravertebral abnormality is identified. IMPRESSION: 1. No acute lumbar spine fracture or subluxation. 2. Old moderate T12 compression fracture, likely chronic. Mild loss of height of the superior endplat e of L1 which is also chronic. 3. 6.6 cm infrarenal abdominal aortic aneurysm better depicted on the abdomen and pelvis CT. No evide nce for rupture. 4. Moderate degenerative disc disease and severe facet arthrosis within the lumbar spine. Moderate de xtroscoliosis. ACT 112: Negative or not required by law. Electronically signed by: aDve Gutierrez M.D. 04/17/2025 11:25 AM
--- NOTE | 2025-04-17 11:27 | CT Scan Report ---
CT head/brain wo con CLINICAL HISTORY: 84 years-old Male with trauma. Acute head trauma, TECHNIQUE: Multiple axial CT images of the head were obtained without contrast. A dose lowering tech nique was utilized adhering to the principles of ALARA. COMPARISON: CT cervical spine same day FINDINGS: Motion degraded exam. Involutional changes with chronic microvascular ischemic disease. Areas of bila teral parieto-occipital encephalomalacia are noted. Cerebral vascular calcifications. Chronic lacunar infarcts of the cerebellum. No acute intracranial hemorrhage, midline shift, intracranial mass, hydr ocephalus, territorial ischemia or abnormal extra-axial collection. The calvarium is intact. The paranasal sinuses, mastoid air cells, and middle ear cavities are clear . IMPRESSION: 1. Motion degraded exam without acute intracranial abnormality or calvarial fracture identified. 2. Involutional changes with chronic microvascular ischemic disease. 3. 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 ACT 112: Negative or not required by law. The above report was generated using voice recognition software. It may contain grammatical, syntax o r spelling errors. Electronically signed by: Shawn Torres M.D. 04/17/2025 11:25 AM
--- NOTE | 2025-04-17 11:30 | CT Scan Report ---
CT cervical spine wo con CT DOSE: 1769.98 mGy.cm CLINICAL HISTORY: 84 years-old Male with trauma. Acute head and neck injury status post fall COMPARISON: Head CT of same day TECHNIQUE: Multiple axial CT images of the cervical spine were obtained without contrast. A dose low ering technique was utilized adhering to the principles of ALARA. FINDINGS: Mild multilevel intervertebral disc space narrowing. Moderate to severe degeneration at C1- C2. Moderate multilevel facet arthrosis. Nuchal ligament calcifications. Sclerotic focus at C7, likel y a small bone island. The cervical soft tissues appear unremarkable. Emphysema with pulmonary fibrotic changes. Partially imaged right upper lobe consolidation. Chest CT dictated separately. Unremarkable soft tissues. IMPRESSION: 1. No acute cervical spine fracture or subluxation identified. 2. Emphysema with fibrosis and partially imaged right upper lobe consolidation. Please refer to the chest CT for additional findings. ACT 112: Negative or not required by law. The above report was generated using voice recognition software. It may contain grammatical, syntax o r spelling errors. Electronically signed by: Shawn Torres M.D. 04/17/2025 11:29 AM
--- NOTE | 2025-04-17 12:46 | Pulmonary Consultation ---
Date of Consultation April 17, 2025 Assessment & Plan (1) Mass of right lung: I had a long and detailed discussion with the patient's son regarding the patient's condition and prognosis. I explained to him the work-up and potential procedures and treatments, which include but not restricted to keeping the p atient NPO because of concern about aspiration, need for bronchoscopy, prolonged treatment with IV antibiotics, etc... The patient's son had chance to ask questions. He opted for palliative care. However, because the patient has been residing in a prison, palliative care may have to be started in the hospital. The same was discussed with Dr. Marcos. (2) Failure to thrive in adult: (3) Dementia: (4) Pneumothorax: History of Present Illness Reason for Consultation: Abnormal Chest CT Attending Physician: Dr. Marcos History of Present Illness The patient is an 84-year-old male who presented to the ED after an accidental fall from his wheelchair at his residential facility, during which he struck his head. The event occurred after a night of poor sleep, which was unusual for him, and he reportedly fell asleep in his wheelchair that morning before the fall. Staff at the facility noted brisk bleeding from a scalp wound, which had been controlled by the time EMS arrived. He has a history of dementia and was unable to provide further details; additional history was obtained from his son. Imaging workup included chest imaging which showed multiple subpleural mass- like opacities in the right lung, the largest measuring 5.1 cm, with associated right basilar pneumothorax, small pleural effusion, trace pneumomediastinum, and underlying emphysema and interstitial lung disease. No acute rib fractures. Past medical history included BPH, CAD, COPD, CHF, GERD, MAHSA, HLD, HTN, MS, dementia, CVA, right lung cancer, pleural effusion, infrarenal AAA, urinary retention, and a history of falls. Home medications included apixaban, atorvastatin, carvedilol, dapagliflozin, tamsulosin, mirabegron, famotidine, docusate, polyethylene glycol, bisacodyl, cetirizine, diclofenac gel, hydrocortisone suppository, ipratropium-albuterol, lactulose, lorazepam, melatonin, naproxen, pantoprazole, polymyxin B/trimethoprim eye drops, and tizanidine. I was asked by Dr. Marcos in the ED because the patient's son wanted an opinion regarding potential for benefit from treatment of the abnormalities on the chest CT versus resorting to palliative care. I reviewed the record and interviewed the patient's son, and tried as much as possible to talk to the patient, but I was only able to get few words from him. Initially he denied any pain, but after giving him more options, he admitted to some pain at the site where he hit his head. He denied problems with chest pain or dyspnea. He denied problems with cough. I had a long and detailed discussion with the patient's son regarding the patient's condition and prognosis. I explained to him the work-up and potential procedures and treatments, which include but not restricted to keeping the patient NPO because of concern about aspiration, need for bronchoscopy, prolo nged treatment with IV antibiotics, etc... The patient's son had chance to ask questions. He opted for palliative care. However, because the patient has been residing in a prison, palliative care may have to be started in the hospital. The same was discussed with Dr. Marcos. Allergies Allergy/AdvReac Type Severity Reaction Status Date / Time codeine Allergy Verified 01/25/25 14:14 Home Medications Medication Instructions Recorded Confirmed Type apixaban 5 mg tablet 5 mg PO BID 01/25/25 04/17/25 History atorvastatin 10 mg tablet 10 mg PO HS 01/25/25 04/17/25 History bisacodyl 10 mg rectal suppository 10 mg DC DAILY PRN Constipation 01/25/25 04/17/25 History carvedilol 6.25 mg tablet 6.25 mg PO BID 01/25/25 04/17/25 History dapagliflozin propanediol 10 mg 10 mg PO DAILY 01/25/25 04/17/25 History tablet docusate sodium 100 mg capsule 100 mg PO BID 01/25/25 04/17/25 History (Colace) famotidine 20 mg tablet (Pepcid) 20 mg PO BID 01/25/25 04/17/25 History mirabegron 50 mg tablet,extended 50 mg PO DAILY 01/25/25 04/17/25 History release 24 hr polyethylene glycol 3350 17 17 g PO DAILY 01/25/25 04/17/25 History gram/dose oral powder (Miralax) tamsulosin 0.4 mg capsule (Flomax) 0.4 mg PO .every 12 hours #30 caps 01/28/25 04/17/25 Rx cetirizine 10 mg tablet 10 mg PO DAILY 04/17/25 04/17/25 History diclofenac sodium 1 % topical gel 4 g topical QID 04/17/25 04/17/25 History hydrocortisone acetate 25 mg 25 mg DC BID PRN hemmoroids 04/17/25 04/17/25 History rectal suppository ipratropium 0.5 mg-albuterol 3 mg 3 ml inhalation BID 04/17/25 04/17/25 History (2.5 mg base)/3 mL nebulization soln lactulose 10 gram/15 mL oral 30 ml PO AMHS PRN Constipation 04/17/25 04/17/25 History solution lorazepam 0.5 mg tablet 0.5 mg PO Q6H PRN Anxiety 04/17/25 04/17/25 History melatonin 3 mg tablet 6 mg PO HS PRN Sleep 04/17/25 04/17/25 History naproxen sodium 220 mg tablet 220 mg PO BID PRN Pain 04/17/25 04/17/25 History pantoprazole 40 mg tablet,delayed 40 mg PO DAILY 04/17/25 04/17/25 History release polymyxin B sulfate 10,000 1 drp ophthalmic (eye) QID 04/17/25 04/17/25 History unit-trimethoprim 1 mg/mL eye drops tizanidine 4 mg tablet 4 mg PO Q8H PRN Muscle Spasm 04/17/25 04/17/25 History Patient History Medical History (Updated 04/17/25 @ 18:32 by John Lora MD) CVA (cerebral vascular accident) Social History Smoking Status: Unknown if ever smoked Feels Safe at Home: Yes Review of Systems Review of Systems: All systems reviewed & are unremarkable except as noted in HPI & below Physical Exam Physical Exam: General: In no acute distress, lying on his side in a position, breathing room-air. Skin: Warm and dry to touch. Nodular subcutaneous lesion in mid-back close to the vertebral processes. Small skin wound on scalp. Eyes: Anicteric.Noconjunctival hyperemia or exudates.No periorbital edema. ENT: No oral thrush. No oropharyngeal erythema or exudates. Neck: No palpable masses or adenopathy. Respiratory: Diffusely decreased breath sounds, no wheezing; right lung inspiratory crackles. No use of accessory muscles and no prolonged exhalation. Cardiac: Distant sounds, regular rhythm, no murmurs, no gallops, no rubs; could not appreciate JV pulse elevation. GI: Soft, nontender. Extremities No clubbing,no cyanosis,no edema. Neuro: Awakens easily, but minimally interactive. Results & Data Results & Data Vital Signs (Past 12 Hours) Vital Signs Temp Pulse Pulse Resp BP BP Pulse Ox 04/17/25 12:00 77 20 111/48 L 93 04/17/25 12:00 83 18 111/48 L 95 04/17/25 11:30 76 18 104/49 L 91 04/17/25 11:00 74 25 H 93/52 L 96 04/17/25 11:00 76 18 93/52 L 97 04/17/25 10:30 57 L 19 109/50 L 98 04/17/25 10:00 57 L 18 117/52 L 96 04/17/25 10:00 57 L 18 117/52 L 96 04/17/25 09:33 57 L 19 113/53 L 94 04/17/25 09:30 57 L 19 114/55 L 94 04/17/25 08:45 36.5 C 60 19 128/55 L 99 O2 Del Method 04/17/25 12:00 04/17/25 12:00 Room Air 04/17/25 11:30 04/17/25 11:00 04/17/25 11:00 Room Air 04/17/25 10:30 04/17/25 10:00 04/17/25 10:00 Room Air 04/17/25 09:33 04/17/25 09:30 04/17/25 08:45 Room Air Laboratory Results 04/17/25 09:00 WBC 9.15 RBC 3.70 L Hgb 10.0 L Hct 31.5 L MCV 85.1 MCH 27.0 MCHC 31.7 L RDW Std Deviation 46.4 H RDW Coeff of Joellen 15.0 H Plt Count 299 MPV 10.0 Immature Gran % (Auto) 0.1 Neut % (Auto) 72.3 Lymph % (Auto) 8.1 Fajardo % (Auto) 14.8 Eos % (Auto) 4.4 Baso % (Auto) 0.3 Neut # (Auto) 6.62 H Lymph # (Auto) 0.74 L Fajardo # (Auto) 1.35 H Eos # (Auto) 0.40 Baso # (Auto) 0.03 Immature Gran # (Auto) 0.01 Sodium 138 Potassium 4.1 Chloride 104 Carbon Dioxide 27 Anion Gap 7 BUN 28 H Creatinine 1.15 Est Cr Clr Drug Dosing 35.9 eGFR 61.98 BUN/Creatinine Ratio 24.3 H Glucose 121 H Calcium 9.6 Magnesium 2.3 Total Bilirubin 0.4 AST 22 ALT 11 Alkaline Phosphatase 77 Troponin I High Sens 10.4 Total Protein 9.1 H Albumin 3.1 L Globulin 6.0 H Albumin/Globulin Ratio 0.5 L TSH 1.763 Diagnostic Findings Cervical Spine CT 04/17/25 08:53 CT cervical spine wo con CT DOSE: 1769.98 mGy.cm CLINICAL HISTORY: 84 years-old Male with trauma. Acute head and neck injury status post fall COMPARISON: Head CT of same day TECHNIQUE: Multiple axial CT images of the cervical spine were obtained without contrast. A dose lowering technique was utilized adhering to the principles of ALARA. FINDINGS: Mild multilevel intervertebral disc space narrowing. Moderate to severe degeneration at C1-C2. Moderate multilevel facet arthrosis. Nuchal ligament calcifications. Sclerotic focus at C7, likely a small bone island. The cervical soft tissues appear unremarkable. Emphysema with pulmonary fibrotic changes. Partially imaged right upper lobe consolidation. Chest CT dictated separately. Unremarkable soft tissues. IMPRESSION: 1. No acute cervical spine fracture or subluxation identified. 2. Emphysema with fibrosis and partially imaged right upper lobe consolidation. Please refer to the same day chest CT for additional findings. ACT 112: Negative or not required by law. The above report was generated using voice recognition software. It may contain grammatical, syntax or spelling errors. Electronically signed by: Shawn Torres M.D. 04/17/2025 11:29 AM Chest X-Ray 04/17/25 08:53 XR chest 1V portable CLINICAL HISTORY: Trauma. COMPARISON STUDY: No previous studies for comparison. FINDINGS: No pneumothorax or pleural effusion is identified. Mild asymmetric right lung volume loss is noted. There are asymmetric opacities and interstitial thickening within the right lung. Biapical densities are also greater on the right. There is no evidence for pulmonary edema. Cardiomediastinal silhouette is unremarkable. Electronic device projects of the left lower chest. No acute rib fractures are identified on portable AP chest radiograph. IMPRESSION: 1. No pneumothorax. 2. Asymmetric interstitial thickening, opacities and volume loss within the right lung. These findings are age-indeterminate and may be chronic however pneumonia cannot be excluded. Radiographic follow-up to ensure stability/resolution is recommended to exclude the possibility of an underlying pulmonary lesion. ACT 112: Negative or not required by law. Electronically signed by: Dave Gutierrez M.D. 04/17/2025 9:[address] 04/17/25 08:53 CT head/brain wo con CLINICAL HISTORY: 84 years-old Male with trauma. Acute head trauma, TECHNIQUE: Multiple axial CT images of the head were obtained without contrast. A dose lowering technique was utilized adhering to the principles of ALARA. COMPARISON: CT cervical spine same day FINDINGS: Motion degraded exam. Involutional changes with chronic microvascular ischemic disease. Areas of bilateral parieto-occipital encephalomalacia are noted. Cerebral vascular calcifications. Chronic lacunar infarcts of the cerebellum. No acute intracranial hemorrhage, midline shift, intracranial mass, hydrocephalus, territorial ischemia or abnormal extra-axial collection. The calvarium is intact. The paranasal sinuses, mastoid air cells, and middle ear cavities are clear. IMPRESSION: 1. Motion degraded exam without acute intracranial abnormality or calvarial fracture identified. 2. Involutional changes with chronic microvascular ischemic disease. 3. 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 ACT 112: Negative or not required by law. The above report was generated using voice recognition software. It may contain grammatical, syntax or spelling errors. Electronically signed by: Shawn Torres M.D. 04/17/2025 11:25 AM Pelvis X-Ray 04/17/25 08:53 XR pelvis 1-2V routine HISTORY: 84 years-old Male trauma acute pelvic trauma COMPARISON: CT abdomen and pelvis of same day TECHNIQUE: AP view of the pelvis FINDINGS: Mild osteoarthritis of the hips. There is cortical irregularity noted involving the mid right femoral neck. No acute displaced fracture or dislocation. Arterial calcifications are present. Surgical clips project over the midline pelvis. IMPRESSION: 1. No definite acute fracture or dislocation. 2. Cortical irregularity of the right femoral neck is likely projectional when comparing to the same day CT abdomen and pelvis. No definite acute fracture identified. ACT 112: Negative or not required by law. The above report was generated using voice recognition software. It may contain grammatical, syntax or spelling errors. Electronically signed by: Shawn Torres M.D. 04/17/2025 11:12 AM Abdomen/Pelvis CT 04/17/25 08:58 CT SCAN OF THE ABDOMEN AND PELVIS WITH IV CONTRAST CLINICAL HISTORY: Fall. COMPARISON STUDY: Pelvis radiograph performed earlier today. TECHNIQUE: Following the IV administration of 94 cc of Optiray 320, CT scan of the abdomen and pelvis is performed from the lung bases to the proximal femora. Images are reviewed in the axial, sagittal, and coronal planes. IV contrast was administered without complication. A dose lowering technique was utilized adhering to the principles of ALARA. FINDINGS: Please note that the chest CT will be reported separately. A small right basilar pneumothorax is better depicted on that exam. No hemoperitoneum or pneumoperitoneum is present. Note is made of a 6.6 x 5.4 cm infrarenal abdominal aortic aneurysm. There is no evidence for rupture. There is extensive aortoiliac atherosclerotic plaque. A 3 cm water attenuation right renal lesion represents a cyst. There is no evidence for traumatic injury to the liver, spleen, adrenal glands, kidneys or pancreas. There are calcified granulomas within the spleen. A moderate amount of stool within the colon and rectum is present. No bowel wall thickening is present. There is no evidence for a bowel obstruction. A moderate T12 compression fracture is likely chronic. 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 The possible right femoral neck fracture on radiograph was artifactual. There are no acute fractures within the lumbar spine, pelvis or hips. IMPRESSION: 1. No acute traumatic findings within the abdomen or pelvis. 2. No acute fractures within the lumbar spine, pelvis or hips. Old T12 compression fracture. 3. 6.6 x 5.4 cm infrarenal aortic aneurysm. No evidence for rupture. Nonemergent Vascular surgery consultation is recommended. ACT 112: Negative or not required by law. Electronically signed by: Dave Gutierrez M.D. 04/17/2025 11:[address] 04/17/25 08:[address] WITH CONTRAST CLINICAL HISTORY: trauma COMPARISON STUDY: No previous studies for comparison. TECHNIQUE: Axial images of the lumbar spine were obtained following intravenous injection of 94 cc of Optiray 320 IV. Sagittal and coronal reformats were viewed. A dose lowering technique was utilized adhering to the principles of ALARA. FINDINGS: For purposes of numbering on this exam, the L5-S1 disc space is assigned to axial image 358 of [id number]. There is moderate lumbar spine dextroscoliosis. Moderate loss of height of the superior endplate of T12 is likely chronic. There is also mild loss of height of the superior endplate of L1 which is also chronic. No acute lumbar spine fractures are present. There are no suspicious osseous lesions. There is severe multilevel facet arthrosis and moderate disc space narrowing and endplate osteophytosis within the lumbar spine. Evaluation of the central canal and neural foramen is suboptimal given CT technique. Please note that the abdomen and pelvis CT will be reported separately. A 6.6 cm infrarenal abdominal aortic aneurysm is better depicted on that exam. There is a right renal cyst. No acute paravertebral abnormality is identified. IMPRESSION: 1. No acute lumbar spine fracture or subluxation. 2. Old moderate T12 compression fracture, likely chronic. Mild loss of height of the superior endplate of L1 which is also chronic. 3. 6.6 cm infrarenal abdominal aortic aneurysm better depicted on the abdomen and pelvis CT. No evidence for rupture. 4. Moderate degenerative disc disease and severe facet arthrosis within the lumbar spine. Moderate dextroscoliosis. ACT 112: Negative or not required by law. Electronically signed by: Dave Gutierrez M.D. 04/17/2025 11:[address] 04/17/25 09:28 CT SCAN OF THE CHEST WITH IV CONTRAST CLINICAL HISTORY: Fall. COMPARISON STUDY: Chest radiograph performed earlier today. TECHNIQUE: Following the IV administration of 94 cc of Optiray 320, CT scan of the thorax was performed from the thoracic inlet to the upper abdomen. Images are reviewed in the axial, sagittal, and coronal planes. IV contrast was administered without complication. A dose lowering technique was utilized adhering to the principles of ALARA. CT DOSE: 1215.3 mGy.cm FINDINGS: There is no evidence for traumatic injury to the thoracic aorta. Extensive coronary artery calcification is present. The size of the heart is at the upper limits of normal. There are calcified subcarinal and hilar lymph nodes. No pathologically enlarged thoracic lymph nodes are present. There are several prominent subcarinal lymph nodes. Of note, there is a small right basilar pneumothorax. A small amount of associated pleural fluid is present. There is also trace pneumomediastinum. Of note, there are multiple irregular subpleural mass-like opacities within the right lung, the largest of which is within the superior segment of the right lower lobe on image 105. This measures 5.1 cm. There is an additional 4.3 cm subpleural opacity within the medial right lower lobe on image 119. An underlying bronchopleural fistula cannot be excluded. Additional smaller subpleural densities are present. There is a 1.6 cm right lower lobe nodular density. Of note, there is multifocal subpleural reticulation consistent with interstitial lung disease and suspected honeycombing. Right apical pleural thickening is present. There is underlying emphysema. A moderate T12 compression fracture is likely old. No acute rib or thoracic spine fractures identified. IMPRESSION: 1. Small right pneumothorax. No acute rib fractures identified. Trace pneumomediastinum. An underlying bronchopleural fistula as the etiology for the pneumothorax cannot be excluded. 2. Multiple subpleural mass-like opacities within the right lung which correspond to findings on chest radiograph. These are nonspecific and may represent necrotizing pneumonia. However, a neoplastic etiology is also within the differential. Pulmonary consultation is recommended. In addition, short-term follow-up chest CT in one month is suggested. 3. Evidence for interstitial lung disease and emphysema, as described above. 4. Scattered nodular opacities within the lungs, including a 1.6 and a right lower lobe opacity. These can be assessed on the follow-up chest CT. 5. Moderate T12 compression fracture, likely chronic. No acute fractures identified. ACT 112: Positive. There are findings on this exam that require communication between the performing entity and the patient following Patient Test Result Information Act ([place] Act 112) guidelines. Electronically signed by: Dave Gutierrez M.D. 04/17/2025 11:14 AM Medications Administered Home Medications Medication Instructions Recorded Confirmed Last Taken apixaban 5 mg tablet 5 mg PO BID 01/25/25 04/17/25 Unknown atorvastatin 10 mg tablet 10 mg PO HS 01/25/25 04/17/25 Unknown bisacodyl 10 mg rectal suppository 10 mg DC DAILY PRN Constipation 01/25/25 04/17/25 Unknown carvedilol 6.25 mg tablet 6.25 mg PO BID 01/25/25 04/17/25 Unknown dapagliflozin propanediol 10 mg 10 mg PO DAILY 01/25/25 04/17/25 Unknown tablet docusate sodium 100 mg capsule 100 mg PO BID 01/25/25 04/17/25 Unknown (Colace) famotidine 20 mg tablet (Pepcid) 20 mg PO BID 01/25/25 04/17/25 Unknown mirabegron 50 mg tablet,extended 50 mg PO DAILY 01/25/25 04/17/25 Unknown release 24 hr polyethylene glycol 3350 17 17 g PO DAILY 01/25/25 04/17/25 Unknown gram/dose oral powder (Miralax) tamsulosin 0.4 mg capsule (Flomax) 0.4 mg PO .every 12 hours #30 caps 01/28/25 04/17/25 Unknown cetirizine 10 mg tablet 10 mg PO DAILY 04/17/25 04/17/25 Unknown diclofenac sodium 1 % topical gel 4 g topical QID 04/17/25 04/17/25 Unknown hydrocortisone acetate 25 mg 25 mg DC BID PRN hemmoroids 04/17/25 04/17/25 Unknown rectal suppository ipratropium 0.5 mg-albuterol 3 mg 3 ml inhalation BID 04/17/25 04/17/25 Unknown (2.5 mg base)/3 mL nebulization soln lactulose 10 gram/15 mL oral 30 ml PO AMHS PRN Constipation 04/17/25 04/17/25 Unknown solution lorazepam 0.5 mg tablet 0.5 mg PO Q6H PRN Anxiety 04/17/25 04/17/25 Unknown melatonin 3 mg tablet 6 mg PO HS PRN Sleep 04/17/25 04/17/25 Unknown naproxen sodium 220 mg tablet 220 mg PO BID PRN Pain 04/17/25 04/17/25 Unknown pantoprazole 40 mg tablet,delayed 40 mg PO DAILY 04/17/25 04/17/25 Unknown release polymyxin B sulfate 10,000 1 drp ophthalmic (eye) QID 04/17/25 04/17/25 Unknown unit-trimethoprim 1 mg/mL eye drops tizanidine 4 mg tablet 4 mg PO Q8H PRN Muscle Spasm 04/17/25 04/17/25 Unknown Active Medications Generic Name Dose Route Start Last Admin Trade Name Freq PRN Reason Stop Dose Admin Sodium Chloride 500 mls @ 125 mls/hr 04/17/25 09:00 04/17/25 12:36 Nss IV 04/17/25 12:59 Infused .Q4H JOHN Infusion PG Care Time/CCT Total # of Minutes Spent Total Time Spent with Patient: Total time spent is greater than 50% in coordination of care (as documented) at patient's floor/unit and/or counseling patient: Coding Level of Care Code 17617 IN/OBS CONSULT LVL 3,45M Diagnoses Mass of right lung R91.8 Failure to thrive in adult R62.7 Dementia F03.90 Pneumothorax J93.9 Time Spent (min) 55
--- NOTE | 2025-04-17 13:52 | History & Physical Report ---
"Date of Service April 17, 2025 Assessment & Plan (1) Accidental fall from wheelchair: (2) Failure to thrive in adult: (3) Mass of right lung: (4) CVA (cerebral vascular accident): Plan Haja is a 84-year-old male with a past medical history of BPH, CAD, COPD, CHF, GERD, MAHSA, HLD, HTN, MS, dementia, CVA and right lung cancer. He is a resident at [facility] and presents after a fall out of his wheelchair with a head strike but no LOC. Inital evaluation showing lung mass. Admitted for further workup/goals of care #Fall | Failure to thrive - with headstrike on Eliquis. Cause of fall likely multifactorial with progressive weakness from MS, dementia and untreated lung cancer. C-spine CT/ Pelvis xray / CT A/P and lumbar spine CT without injury from fall. Head CT with changes from chronic microvascular disease and chronic infarcts, no acute bleeds. Hold Eliquis with head strike PT/OT Patient will need placement in SNF +/- hospice. See ACP Note for further clarification on goals of care. #Right Lung Cancer - seen on Chest CT - multiple subpleural mass like opacities. Son reports this was found in [place] ~ 3-4 months ago just prior to his move. No workup was pursued/desired, has not established care locally. Concerning for possible overlapping PNA, but no leukocytosis, afebrile and negative procal. Will defer antibiotics. Biofire negative. Does have ESR and CRP elevations. ESR could be related to his untreated MS. Continue to trend CRP Pulm Consulted AM CBC, BMP and CRP #Avascular Necrosis of Left hip - noted on CT A/P pain control as needed Family would not want surgery if he was a candidate #Aortic Aneursym - this is not a new finding, family was aware of this from [place]. no acute interventions #hx of CVA | HLD continue Statin #BPH continue mirabegron or formularly equivalent continue flomax #CHF - without acute exacerbation. Clinically dry on exam Given 500cc fluids in ED Hold farxiga Dispo: admit to med/surg. At this time will continue home meds, check AM labs and further discussion with family about future intervention. No drastic escalations of care. DVT proh: Elqiuis held with head strike, SCDs son updated at bedside on admission 04/17 History of Present Illness Chief Complaint: Fall Primary Care Provider: Compa Ricketts MD Haja is a 84-year-old male with a past medical history of BPH, CAD, COPD, CHF, GERD, MAHSA, HLD, HTN, MS, dementia, CVA and right lung cancer. He is a resident at [facility] and presents after a fall out of his wheelchair. History is provided by the ER provider and the son at bedside. His son reports that Haja moved up here from [place] about 3 months ago, just prior to leaving he had an abnormal chest x-ray chest CT at that time that was concerning for lung cancer. He decided not to undergo any sort of chemotherapy or radiation. Since dad has moved to [place] he has had a more rapid progressive decline. No known illness symptoms in the last week. Reportedly Haja did not sleep well last night and then this morning fell asleep in his wheelchair and fell out of the wheelchair and hit his head. Son reports that not too long ago Haja was able to walk around with a rollator and feed himself but he has declined in these regards. Allergies Allergy/AdvReac Type Severity Reaction Status Date / Time codeine Allergy Verified 01/25/25 14:14 Home Medications Medication Instructions Recorded Confirmed Type apixaban 5 mg tablet 5 mg PO BID 01/25/25 04/17/25 History atorvastatin 10 mg tablet 10 mg PO HS 01/25/25 04/17/25 History bisacodyl 10 mg rectal suppository 10 mg MD DAILY PRN Constipation 01/25/25 04/17/25 History carvedilol 6.25 mg tablet 6.25 mg PO BID 01/25/25 04/17/25 History dapagliflozin propanediol 10 mg 10 mg PO DAILY 01/25/25 04/17/25 History tablet docusate sodium 100 mg capsule 100 mg PO BID 01/25/25 04/17/25 History (Colace) famotidine 20 mg tablet (Pepcid) 20 mg PO BID 01/25/25 04/17/25 History mirabegron 50 mg tablet,extended 50 mg PO DAILY 01/25/25 04/17/25 History release 24 hr polyethylene glycol 3350 17 17 g PO DAILY 01/25/25 04/17/25 History gram/dose oral powder (Miralax) tamsulosin 0.4 mg capsule (Flomax) 0.4 mg PO .every 12 hours #30 caps 01/28/25 04/17/25 Rx cetirizine 10 mg tablet 10 mg PO DAILY 04/17/25 04/17/25 History diclofenac sodium 1 % topical gel 4 g topical QID 04/17/25 04/17/25 History hydrocortisone acetate 25 mg 25 mg MD BID PRN hemmoroids 04/17/25 04/17/25 History rectal suppository ipratropium 0.5 mg-albuterol 3 mg 3 ml inhalation BID 04/17/25 04/17/25 History (2.5 mg base)/3 mL nebulization soln lactulose 10 gram/15 mL oral 30 ml PO AMHS PRN Constipation 04/17/25 04/17/25 History solution lorazepam 0.5 mg tablet 0.5 mg PO Q6H PRN Anxiety 04/17/25 04/17/25 History melatonin 3 mg tablet 6 mg PO HS PRN Sleep 04/17/25 04/17/25 History naproxen sodium 220 mg tablet 220 mg PO BID PRN Pain 04/17/25 04/17/25 History pantoprazole 40 mg tablet,delayed 40 mg PO DAILY 04/17/25 04/17/25 History release polymyxin B sulfate 10,000 1 drp ophthalmic (eye) QID 04/17/25 04/17/25 History unit-trimethoprim 1 mg/mL eye drops tizanidine 4 mg tablet 4 mg PO Q8H PRN Muscle Spasm 04/17/25 04/17/25 History Past Med/Surg History Problem List (Updated 04/17/25 @ 18:32 by John Lora MD) Pneumothorax Failure to thrive in adult Pleural effusion (Acute) Infrarenal abdominal aortic aneurysm (AAA) without rupture (Acute) Mass of right lung (Acute) Dementia (Acute) Accidental fall from wheelchair (Acute) Abrasion of scalp (Acute) CHI (closed head injury) (Acute) CAD (coronary artery disease) Urinary retention Enlarged prostate with lower urinary tract symptoms (LUTS) Medical History (Updated 04/17/25 @ 18:32 by John Lora MD) CVA (cerebral vascular accident) Social History Smoking Status: Former smoker Tobacco Type: Cigarettes Cigarettes Per Day: A few packs a day.; Second Hand Exposure: No; Do You Dip or Chew Tobacco: No; Hx Alcohol Use: No Hx Substance Use: No Preferred Language: Haitian Communication Ability: Effective Management Specialist Required: No Beliefs That Will Affect Care: None Current Living Situation: Personal Care Facility Feels Safe at Home: Yes Assistive Devices: Glasses, Hospital Bed and Walker Review of Systems Review of Systems: All systems reviewed & are unremarkable except as noted in Subjective Physical Exam 2 Physical Exam: General: NAD, VS as above, Thin, frail HEENT: Mucous membranes dry Resp: normal respiratory effort, diminished on the right CV: RRR, no murmur, Abd: normal bowel sounds, non tender, soft Extremities: Moves all extremities, no edema Neuro: A&O x1, Skin: Lesion to scalp, no swelling or signs of infection. No active bleeding. Results & Data Results & Data Vital Signs (Past 12 Hours) Vital Signs Temp Pulse Pulse Resp BP BP Pulse Ox 04/17/25 13:35 85 25 H 131/57 L 96 04/17/25 12:50 77 04/17/25 12:00 77 20 111/48 L 93 04/17/25 12:00 83 18 111/48 L 95 04/17/25 11:30 76 18 104/49 L 91 04/17/25 11:00 74 25 H 93/52 L 96 04/17/25 11:00 76 18 93/52 L 97 04/17/25 10:30 57 L 19 109/50 L 98 04/17/25 10:00 57 L 18 117/52 L 96 04/17/25 10:00 57 L 18 117/52 L 96 04/17/25 09:33 57 L 19 113/53 L 94 04/17/25 09:30 57 L 19 114/55 L 94 04/17/25 08:45 97.7 F 60 19 128/55 L 99 O2 Del Method 04/17/25 13:35 Room Air 04/17/25 12:50 04/17/25 12:00 04/17/25 12:00 Room Air 04/17/25 11:30 04/17/25 11:00 04/17/25 11:00 Room Air 04/17/25 10:30 04/17/25 10:00 04/17/25 10:00 Room Air 04/17/25 09:33 04/17/25 09:30 04/17/25 08:45 Room Air Laboratory Results CBC, chemistry, Pro-Ildefonso, ESR, CRP reviewed. BioFire reviewed Diagnostic Findings Chest CT, lumbar spine CT, CT abdomen pelvis reviewed Pelvis x-ray, head CT, chest x-ray and C-spine CT reviewed Supervising Physician Co-Signing Physician Notes I personally saw and examined the patient. I independently reviewed the labs, EKG, imaging, problem list, medication list, past medical history and family history. I verified all talbot points and agree with Veronica Rodriguez PA-C with the following exceptions and/or additions: 84 year old presents to the ER after falling forward. Patient unable to give additional history. See history above. O/E Normal respiratory effort, no respiratory distress, crackles on right side, diminished throughout, HS RRR A/P No evidence of acute infection and plan for more comfort care approach. Plan to discharge on hospice care. PG Care Time/CCT Total # of Minutes Spent Total Time Spent with Patient: Total time spent is greater than 50% in coordination of care (as documented) at patient's floor/unit and/or counseling patient: Coding Level of Care Code 82444 INT INP/OBS CARE 3/75MIN Diagnoses Accidental fall from wheelchair W05.0XXA Failure to thrive in adult R62.7 Mass of right lung R91.8 CVA (cerebral vascular accident) I63.9"
[2025-04-17 15:31] LABS: Chlamydia pneumoniae PCR Not Detected (NotDetected); Coronavirus 229E PCR Not Detected (NotDetected); Coronavirus CoV-2 (COVID19)PCR Not Detected (NotDetected); Coronavirus HKU1 PCR Not Detected (NotDetected); Coronavirus NL63 PCR Not Detected (NotDetected); Coronavirus OC43PCR Not Detected (NotDetected); Human Metapneumovirus PCR Not Detected (NotDetected); Parainfluenza Virus 1 PCR Not Detected (NotDetected); Parainfluenza Virus 2 PCR Not Detected (NotDetected); Parainfluenza Virus 3 PCR Not Detected (NotDetected); Parainfluenza Virus 4 PCR Not Detected (NotDetected); Respiratory Syncytial VirusPCR Not Detected (NotDetected); Rhinovirus/Enterovirus PCR Not Detected (NotDetected)
--- NOTE | 2025-04-17 16:07 | Advance Care Plan Prog Note ---
Advanced Care Planning Note Date of Discussion April 17, 2025 ACP Discussion Diagnoses requiring ACP discussion: Failure to thrive, presumed lung cancer, untreated MS A [id number] discussion with the son, Denys and patient regarding the patient's advanced care planning took place during this hospitalization on the above date. The discussion included the explanation and discussion of advance directives and associated forms/documents, as well as the patient's current code status. We also discussed at length the patient's medical conditions (both acute and chronic), general prognosis, treatment options, and goals of care. The following summarizes the discussion: Haja was not able to contribute much to the conversation given his cognitive status and declining dementia. Haja does make multiple comments of wanting to get going and wanting to get up and move and not wanting to be in the hospital anymore. Denys relays that he moved his father up here about 3 months ago from [place] and moved him to [facility]. Denys states over the last 3 months that he has just seen a rapid decline in his father. He is no longer able to ambulate with his rollator, he is also unable to feed himself most days. Denys has hired a company to come in to make sure that Haja is fed at least 1 meal a day and he tries to go to the personal-assisted for all the meals. They was aware of the cancer diagnosis prior to moving out of [place] and would not want chemother apy, radiation or other invasive interventions. We discussed the goals of current hospital admission, at the time of admission Denys is okay if there are acute reversible causes that will help contribute to his father's comfort. He is okay with us continuing to check labs at this point and would be okay with antibiotics if warranted. Would not desire further escalation of care for invasive measures as he is very focused on his father's comfort. He is aware that his father probably needs SNF level of care and is looking forward to our assistance with facilitating that. Denys States that his father is a DNR. Advance Care Planning/Goals of Care Continue current evaluation & management of any acute/chronic issues, Will continue to support the patient/family and Will continue to discuss both short- and long-term goals of care Status Resuscitation Status DNR/DNI No Resuscitation Total Time I spent a total of 25 minutes was spent on this discussion, including counseling, answering questions, and completing, if any, pertinent advanced care planning forms/documents.
[2025-04-17] MEDS ORDERED: ONDANSETRON INJ 2 MG/ML 2 ML VIAL IV PRN (17:43)
[2025-04-17] MEDS ORDERED: MAGNESIUM HYDROXIDE SUSP 30 ML UDC PO PRN (17:43)
[2025-04-17] MEDS: DICLOFENAC SOD 1% GEL 100 GM TUBE EXT SCH (19:49)
[2025-04-17] MEDS: TAMSULOSIN HCL 0.4 MG CAP PO SCH (19:51)
[2025-04-17] MEDS: ATORVASTATIN 10 MG TAB PO SCH (19:51)
[2025-04-17] MEDS: MELATONIN 3 MG TAB PO PRN (19:56)
[2025-04-17] MEDS: LORazepam 0.5 MG TAB PO PRN (19:56)
[2025-04-17] MEDS: FAMOTIDINE 20 MG TAB PO SCH (20:30)
[2025-04-17] MEDS: DOCUSATE SODIUM 100 MG CAP PO SCH (20:30)
[2025-04-18 06:16] LABS: Hematocrit (blood only) 32.0 % (42.0-52.0); Hemoglobin 10.2 g/dL (14.0-18.0); Mean Corpuscular Hemoglobin 26.7 pg (25.0-34.0); Mean Corpuscular Volume 83.8 fL (80.0-100.0); Platelet Count 294 K/uL (130-400); RDW Standard Deviation 45.6 fL (36.4-46.3); Red Blood Count 3.82 M/uL (4.70-6.10); White Blood Count 8.19 K/ul (4.8-10.8)
[2025-04-18 06:32] LABS: Anion Gap 12.0 (3-11); Blood Urea Nitrogen 20.0 mg/dl (6-23); Calcium 9.1 mg/dl (8.6-10.3); Carbon Dioxide 22.0 mmol/L (21-32); Chloride 107.0 mmol/L (98-107); Creatinine Clr Calc Pharmacy 42.9 ml/min; Glucose 64.0 mg/dl (70-99(Fasting)); Potassium 3.8 mmol/L (3.5-5.1); Sodium 141.0 mmol/L (136-145)
[2025-04-18 08:11] VITALS: RESP 18
[2025-04-18 08:13] LABS: Appearance Urine Clear (Clear); Bacteria Urine Automated None Seen (None Seen); Cast Urine Automated 0-2 /lpf (0-2); Epithelial Cell Urine Auto 0-2 /hpf (0-2); Glucose Urine UA 3+ (Negative); RBC Urine Automated 0-2 /hpf (0-2); WBC Urine Automated 0-5 /hpf (0-5)
[2025-04-18] MEDS: VIBEGRON 75 MG TAB PO SCH (08:24)
[2025-04-18] MEDS: CETIRIZINE HCL 10 MG TABLET PO SCH (08:24)
[2025-04-18] MEDS: POLYETHYLENE (MIRALAX) 17 GM PACK PO SCH (08:25)
--- NOTE | 2025-04-18 10:15 | Hospitalist Progress Note ---
"Date of Service April 18, 2025 Assessment & Plan (1) Accidental fall from wheelchair: (2) Failure to thrive in adult: (3) Mass of right lung: (4) CVA (cerebral vascular accident): Plan Haja is a 84-year-old male with a past medical history of BPH, CAD, COPD, CHF, GERD, MAHSA, HLD, HTN, MS, dementia, CVA and right lung cancer. He is a resident at [facility] and presents after a fall out of his wheelchair with a head strike but no LOC. Inital evaluation showing lung mass. Admitted for further workup/goals of care #Fall | Failure to thrive |Dementia - with headstrike on Eliquis. Cause of fall likely multifactorial with progressive weakness from MS, dementia and untreated lung cancer. C-spine CT/ Pelvis xray / CT A/P and lumbar spine CT without injury from fall. Head CT with changes from chronic microvascular disease and chronic infarcts, no acute bleeds. No change in mental status 24+ hours post fall, okay to resume Eliquis. Discussion with son - no further escalation of care, no further labs, etc. Palliative care with plans to transition to hospice upon discharge, arranging facility. Will continue home meds at this time. PO zyprexa added prn #Right Lung Cancer - seen on Chest CT - multiple subpleural mass like opacities. Son reports this was found in [place] ~ 3-4 months ago just prior to his move. No workup was pursued/desired, has not established care locally. Concerning for possible overlapping PNA, but no leukocytosis, afebrile and negative procal. Will defer antibiotics. Biofire negative. Does have ESR and CRP elevations. ESR could be related to his untreated MS. Pulm Consulted - had discussion with son, opted for palliative approach. #Avascular Necrosis of Left hip - noted on CT A/P pain control as needed Family would not want surgery if he was a candidate #Aortic Aneursym - this is not a new finding, family was aware of this from [place]. no acute interventions #hx of CVA | HLD continue Statin #BPH continue mirabegron or formularly equivalent continue flomax #CHF - without acute exacerbation. Clinically dry on exam Given 500cc fluids in ED Hold farxiga Dispo: no further escelation of care, working towards hospice placement DVT proh: Elqiuis hed son updated at bedside 04/17 & 04/08 discussed with CM Admission and Anticipated Discharge Date Admission Date: April 17, 2025 Supervising Physician Co-Signing Physician Notes I did not see or examine the patient. I verified all talbot points and agree with Veronica Rodriguez PA-C with the following exceptions and/or additions: None Subjective haja seen this morning trying to get out of bed denies pain Review of Systems Review of Systems: All systems reviewed & are unremarkable except as noted in Subjective Physical Exam Physical Exam: General: NAD, VS as above, Thin, frail HEENT: Mucous membranes dry Resp: normal respiratory effort, diminished on the right CV: RRR, no murmur, Extremities: Moves all extremities, no edema Neuro: A&O x1, Skin: Lesion to scalp, no swelling or signs of infection. No active bleeding. Results & Data Results & Data Vital Signs (Past 12 Hours) Vital Signs Temp Pulse Resp BP Pulse Ox O2 Del Method 04/18/25 08:09 98.1 F 92 H 18 135/66 98 Room Air Laboratory Results cbc, chemistry and UA reviewed PG Care Time/CCT Total # of Minutes Spent Total Time Spent with Patient: Total time spent is greater than 50% in coordination of care (as documented) at patient's floor/unit and/or counseling patient: Coding Level of Care Code 81880 SUB INP/OBS CARE 2/35MIN Diagnoses Accidental fall from wheelchair W05.0XXA Failure to thrive in adult R62.7 Mass of right lung R91.8 CVA (cerebral vascular accident) I63.9"
[2025-04-18 15:50] VITALS: BP 153/79; PULSE 95; TEMP 98.2; O2SAT 100
[2025-04-19] MEDS: APIXABAN 5 MG TABLET PO SCH (01:17)
[2025-04-19] MEDS: ACETAMINOPHEN 325 MG TAB PO PRN (05:45)
[2025-04-19] MEDS: ACETAMINOPHEN 1,000 MG/100 ML VIAL IV PRN (06:23)
--- NOTE | 2025-04-19 09:05 | Electrocardiogram Report ---
Test Reason : Blood Pressure : */* mmHG Vent. Rate : 58 BPM Atrial Rate : * BPM P-R Int : * ms QRS Dur : 106 ms QT Int : 460 ms P-R-T Axes : * 24 -30 degrees QTcB Int : 451 ms Poor data quality, interpretation may be adversely affected Sinus bradycardia Borderline criteria for Non-specific intra-ventricular conduction block Inferior infarct , age undetermined Abnormal ECG No previous ECGs available Confirmed by Xander Rose ([id number]) on 04/19/2025 9:04:45 AM Referred By: Confirmed By: Xander Rose
--- NOTE | 2025-04-19 12:53 | Discharge Summary ---
"Discharge Summary Date of Service April 19, 2025 Principal Dx & Hospital Course #1 = Principal Diagnosis (1) Accidental fall from wheelchair: (2) Failure to thrive in adult: (3) Mass of right lung: (4) CVA (cerebral vascular accident): Hever Smyth is a 84-year-old male with a past medical history of BPH, CAD, COPD, CHF, GERD, MAHSA, HLD, HTN, MS, dementia, CVA and right lung cancer. He is a resident at [facility] and presents after a fall out of his wheelchair with a head strike but no LOC. Inital evaluation showing lung mass. Admitted for further workup/goals of care #Fall | Failure to thrive |Dementia - with headstrike on Eliquis. Cause of fall likely multifactorial with progressive weakness from MS, dementia and untreated lung cancer. C-spine CT/ Pelvis xray / CT A/P and lumbar spine CT without injury from fall. Head CT with changes from chronic microvascular disease and chronic infarcts, no acute bleeds. No change in mental status 24+ hours post fall, okay to resume Eliquis. Discussion with son - no further escalation of care, no further labs, etc. Palliative care with plans to transition to hospice upon discharge, arranging facility. Will continue home meds at this time. PO zyprexa added prn #Right Lung Cancer - seen on Chest CT - multiple subpleural mass like opacities. Son reports this was found in [place] ~ 3-4 months ago just prior to his move. No workup was pursued/desired, has not established care locally. Concerning for possible overlapping PNA, but no leukocytosis, afebrile and negative procal. Will defer antibiotics. Biofire negative. Does have ESR and CRP elevations. ESR could be related to his untreated MS. Pulm Consulted - had discussion with son, opted for palliative approach. #Avascular Necrosis of Left hip - noted on CT A/P pain control as needed Family would not want surgery if he was a candidate #Aortic Aneursym - this is not a new finding, family was aware of this from [place]. no acute interventions #hx of CVA | HLD continue Statin #BPH continue mirabegron or formularly equivalent continue flomax #CHF - without acute exacerbation. Clinically dry on exam Given 500cc fluids in ED Hold [facility] able to take the patient back today and hospice able to set up equipment. Will send comfort meds (Morphine 20mg/mL 0.5mL q4 prn pain/dyspnea and Lorazepam 2mg/mL 0.5 mL q4 prn anxiety). Admission HPI Per Admitting Provider Haja is a 84-year-old male with a past medical history of BPH, CAD, COPD, CHF, GERD, MAHSA, HLD, HTN, MS, dementia, CVA and right lung cancer. He is a resident at [facility] and presents after a fall out of his wheelchair. History is provided by the ER provider and the son at bedside. His son reports that Haja moved up here from [place] about 3 months ago, just prior to leaving he had an abnormal chest x-ray chest CT at that time that was concerning for lung cancer. He decided not to undergo any sort of chemotherapy or radiation. Since dad has moved to [place] he has had a more rapid progressive decline. No known illness symptoms in the last week. Reportedly Haja did not sleep well last night and then this morning fell asleep in his wheelchair and fell out of the wheelchair and hit his head. Son reports that not too long ago Haja was able to walk around with a rollator and feed himself but he has declined in these regards. Discharge Exam GENERAL: 84 yo elderly frail and cachectic WM. Confused. No distress. LUNGS: Clear to auscultation bilaterally. No W/R/R. CARDIOVASCULAR: Regular rate and rhythm. SKIN: Warm, dry, intact. No rashes or lesions. Discharge Plan Discharge Items Patient Disposition: Personal Nursing Home Reason For Visit: FALL, LIKELY LUNG CA Discharge Diagnosis: Lung cancer, failure to thrive Condition on Discharge: Fair Activity: Resume your previous activity Non-emergency contact: Primary Care Provider Call non-emergency contact if: you have any medication questions, your symptoms worsen and your pain is not controlled Follow-up/Referrals: Compa Ricketts MD [Primary Care Provider] - Diet: Regular Diet Texture: Easy to Chew Addtl Attending Provider Instructions: Patient was hospitalized after falling out of bed and sustaining a head. No traumatic injury or bleed. He was found to have lung cancer about 3-4 months ago diagnosed in [place]. He is also with advanced dementia and failure to thrive. Son has opted for palliative approach and will plan for return to [place] with hospice care. Hospice can deliver equipment to [place] today therefore pt will be discharge. Transport arranged. Pending Studies at Discharge: No Stand-Alone Forms: My [employer], Smoking Cessation Skilled Items Patient informed of condition?: Yes (pt with dementia, cannot make decisions, son informed) DNR: Yes Discharge Level of Care: Other Communicable Disease: No Discharge Prognosis: Deteriorating Lines: None Urinary Catheter: No Medications and DC Order Prescriptions: New olanzapine 5 mg Tablet,Disintegrating 5 mg PO Q6H PRN (Reason: agitation) Qty: 10 0RF morphine concentrate 20 mg/mL syringe 10 mg sublingual Q4H PRN (Reason: dyspnea/pain) Qty: 50 0RF lorazepam 2 mg/mL concentrate 1 mg PO Q4H PRN (Reason: anxiety) Qty: 30 0RF Continued apixaban 5 mg tablet 5 mg PO BID bisacodyl 10 mg suppository 10 mg UT DAILY PRN (Reason: Constipation) carvedilol 6.25 mg tablet 6.25 mg PO BID Rx Instructions: must administer with a meal/food docusate sodium [Colace] 100 mg capsule 100 mg PO BID famotidine [Pepcid] 20 mg tablet 20 mg PO BID mirabegron 50 mg tablet extended release 24 hr 50 mg PO DAILY polyethylene glycol 3350 [Miralax] 17 gram/dose powder 17 g PO DAILY tamsulosin [Flomax] 0.4 mg capsule 0.4 mg PO .every 12 hours Qty: 30 2RF ipratropium-albuterol 0.5 mg-3 mg(2.5 mg base)/3 mL Solution For Nebulization 3 ml INHALATION BID Rx Instructions: after meals cetirizine 10 mg Tablet 10 mg PO DAILY tizanidine 4 mg tablet 4 mg PO Q8H PRN (Reason: Muscle Spasm) melatonin 3 mg Tablet 6 mg PO HS PRN (Reason: Sleep) pantoprazole 40 mg Tablet,Delayed Release (Dr/Ec) 40 mg PO DAILY lactulose 10 gram/15 mL Solution 30 ml PO AMHS PRN (Reason: Constipation) diclofenac sodium 1 % Gel 4 g TOPICAL QID Rx Instructions: apply to single knee, ankle, foot; for foot includes sole/toes/top of foot Discontinued atorvastatin 10 mg tablet 10 mg PO HS dapagliflozin propanediol 10 mg tablet 10 mg PO DAILY hydrocortisone acetate 25 mg Suppository 25 mg UT BID PRN (Reason: hemmoroids) lorazepam 0.5 mg tablet 0.5 mg PO Q6H PRN (Reason: Anxiety) naproxen sodium 220 mg Tablet 220 mg PO BID PRN (Reason: Pain) polymyxin B sulf-trimethoprim 10,000 unit- 1 mg/mL drops 1 drp ophthalmic (eye) QID Rx Instructions: into left eye at 0800, 1200, 1600, 2000 Discharge Orders: Discharge Order (Routine); Ordered 04/19/25 Ordered By: Dorothy Clark/Other Patient Handouts: Starting Hospice Admission Data Admit Date/Time: 04/17/25 13:53 Attending Provider: Robert Butler Admit Provider: Robert Butler Primary Care Provider: Compa Ricketts Other Providers: Robert Butler; Dorothy Murry; Veronica Rodriguez; John Lora; Jenny Marcos Other Interventions: Discharge Summary Assessment (RN) Last Done: 04/19/25 15:40 Hospital Stay Data Consultations 04/17/25 13:21 ED Decision to Admit Stat Diagnostic Imagining Performed 04/17/25 08:53 CT cervical spine wo con Stat CT head/brain wo con Stat 04/17/25 08:58 CT abd pelvis IV con only Stat CT lumbar spine w con Stat 04/17/25 09:28 CT chest diagnostic w con Stat Pending Results Patient Have Any Pending Studies at Discharge: No Discharge Instructions Given to Patient (Per Discharging Provider) Patient was hospitalized after falling out of bed and sustaining a head. No traumatic injury or bleed. He was found to have lung cancer about 3-4 months ago diagnosed in [place]. He is also with advanced dementia and failure to thrive. Son has opted for palliative approach and will plan for return to [place] with hospice care. Hospice can deliver equipment to [place] today therefore pt will be discharge. Transport arranged. Supervising Physician Co-Signing Physician Notes I did not see or examine the patient. I verified all talbot points and agree with Dorothy Murry PA-C with the following exceptions and/or additions: None Total Time Total Time Spent Total Time Spent (In Minutes): 35 minutes Coding Level of Care Code 92870 INP/OBS DISCH >30 MIN Diagnoses Accidental fall from wheelchair W05.0XXA Failure to thrive in adult R62.7 Mass of right lung R91.8 CVA (cerebral vascular accident) I63.9"
[2025-04-19] MEDS: INFLUENZA VACC TS2025-26(65y+)/PF (IIV3) 0.5mL Syr IM ONE (14:02)
[2025-04-19] MEDS: PNEUMOCOCCAL VACCINE (PCV20) 20-VAL CONJ-DIP CRM/PF 0.5 ML SYR IM ONE (14:04)
[2025-04-19] MEDS: LORazepam Inj 0.5 MG in SYRINGE 0.25 ML IV PRN (16:13)
== END 2025-04-19 16:56 | disposition home or self-care (01) | DRG 181 ==
LOC: ED 08:45 → 3E 13:53